=== PATIENT | female | born 1990 | race Caucasian/White ===

== ENCOUNTER 2024-10-04 08:31 | Emergency (ER) | payer BC, SELFPAY ==
[2024-10-04 08:45] VITALS: BP 120/79; PULSE 99; RESP 20; TEMP 36.4; O2SAT 100
[2024-10-04 09:15] LABS: EDCOVIDSCREEN Negative (Negative); EDINFLUASCREEN Negative (Negative); EDINFLUBSCREEN Negative (Negative)
--- NOTE | 2024-10-04 09:20 | ED.GENADULT ---
HPI - General Adult General Chief complaint: Upper Respiratory Infection Stated complaint: Cough/Sore Throat Source: patient Mode of arrival: ambulatory Limitations: no limitations History of Present Illness HPI narrative: Pt presents for evaluation of a cough for the past three days. Cough is productive of green sputum. She has had hot flashes and chills. No SOB, nausea, vomiting, diarrhea, sore throat or otalgia. She denies any recent sick contacts. She does not smoke. She has taken theraflu for her symptoms. Related Data Home Medications ?Medication ?Instructions ?Recorded ?Confirmed ?Last Taken ?Type esomeprazole magnesium 40 mg 40 mg PO DAILY 10/04/24 Unknown History capsule,delayed release Allergies Allergy/AdvReac Type Severity Reaction Status Date / Time Penicillins Allergy resp Verified 10/04/24 09:06 difficulty Review of Systems Review of Systems: CONSTITUTIONAL: Reports hot flashes and chills EYES: Denies visual changes, redness, or discharge. ENT: Denies rhinorrhea, congestion, sore throat, or otalgia. CARDIOVASCULAR: Denies chest pain, palpitations, or edema. RESPIRATORY: Reports cough. Denies SOB GASTROINTESTINAL: Denies abdominal pain, nausea, vomiting, or diarrhea. GENITOURINARY: Denies dysuria or hematuria. SKIN: Denies rash or itching. MUSCULOSKELETAL: Denies back pain, joint pain, or myalgia. NEUROLOGIC: Denies headache, numbness, dizziness, or weakness. PSYCHIATRIC: Denies anxiety or depression. PMFSH Past Medical History Medical History No pertinent past medical history Surgical History Surgical History No pertinent past surgical history Family History Family History Mother Family history non-contributory Social History Social History Smoking status: Never smoker Substance use: never Living arrangements: alone Gender identity (if verbalized by the patient): Female Spiritual care concerns: No Exam Narrative: GENERAL: Well-appearing, well-nourished, and in no acute distress. HEAD: Normocephalic, atraumatic. EYES: PERRLA and EOMI. ENT: Nares clear, no rhinorrhea or epistaxis. Mucous membranes moist. Oropharynx without tonsillar hypertrophy exudate or other lesions. Bilateral TMs pearly farrell nonbulging NECK: Supple. No adenopathy or masses. No carotid bruits or JVD CHEST: Clear to auscultation. No respiratory distress. No wheezes rales or rhonchi HEART: Regular rate and rhythm. No murmur heard. Normal peripheral pulses. ABDOMEN: Soft, nontender, nondistended, normal active bowel sounds. EXTREMITIES: Normal range of motion. No edema. SKIN: Warm, dry, no rash. NEURO: No focal deficits. Alert and oriented x3. PSYCH: Normal mood and affect. Course Course Emergency Course: This is a 34 yr old female who presented for evaluation of cough. Flu and COVID were negative. She does not have any adventitious lung sounds warranting imaging. Exam consistent with acute viral syndrome. Recommend OTC agents for symptom management. Increase hydration. Follow up with primary provider. Go to the ER for worsening symptoms. Pt in agreement with plan of care. Level of Care: Express Care Visit Vital Signs Vital signs: Vital Signs Temperature 36.4 C L 10/04/24 08:45 Pulse Rate 99 10/04/24 08:45 Respiratory Rate 10/04/24 08:45 Blood Pressure 120/79 10/04/24 08:45 Pulse Oximetry 100 10/04/24 08:45 Oxygen Delivery Room Air 10/04/24 08:45 Temperature 36.4 C L 10/04/24 08:45 Pulse Rate 99 10/04/24 08:45 Respiratory Rate 20 10/04/24 08:45 Blood Pressure 120/79 10/04/24 08:45 Pulse Oximetry 100 10/04/24 08:45 Oxygen Delivery Room Air 10/04/24 08:45 Medical Decision Making Vital Signs Vital Signs: Vital Signs Temperature 36.4 C L 10/04/24 08:45 Pulse Rate 99 10/04/24 08:45 Respiratory Rate 20 10/04/24 08:45 Blood Pressure 120/79 10/04/24 08:45 Pulse Oximetry 100 10/04/24 08:45 Oxygen Delivery Room Air 10/04/24 08:45 Temperature 36.4 C L 10/04/24 08:45 Pulse Rate 99 10/04/24 08:45 Respiratory Rate 20 10/04/24 08:45 Blood Pressure 120/79 10/04/24 08:45 Pulse Oximetry 100 10/04/24 08:45 Oxygen Delivery Room Air 10/04/24 08:45 Lab Data Labs: Lab Results 10/04/24 Range/Units 09:13 POC Influenza A Ag Negative (Negative) POC Influenza B Ag Negative (Negative) POC SARS CoV-2 Ag Negative (Negative) Discharge Plan Discharge Clinical Impression: Acute viral syndrome Patient Disposition: Home, Self-Care Condition: Stable Instructions: Antibiotic Form, Upper Respiratory Infection (ED), Viral Syndrome (ED) Additional Instructions: YOU MAY TAKE MUCINEX DM OR DEXTROMETHORPHAN FOR YOUR SYMPTOMS Patient Language: Mongolian Prescriptions: No Action esomeprazole magnesium 40 mg capsule,delayed release(DR/EC) 40 mg PO DAILY Follow-up/Referrals: Harms,Lee Harrington M.D. [Primary Care Provider] - Time of Disposition: 09:18
--- OUTSIDE RECORDS SUMMARY | 2024-10-05 21:52 | XMS_ITS | Referral Summary ---
Author Organization [facility] [place] [address] lt Address [address] [place] [address] Care Team Providers Care Apprentice Painter Brush Name Role Phone Lee Trujillo MD Primary Care Provider [phone] Encounters Date Type Department Care Team Description 10/03/2024 Nurse Triage [facility] [address] [place] [address] Lee Trujillo MD from Last 3 Months Allergies Active Allergy Reactions Criticality Noted Date Comments Penicillins Unknown 01/19/2022 Medications etonogestreL (Nexplanon) 68 mg implant Nexplanon 68 mg subdermal implant Inject 1 implant by subcutaneous route. Active ondansetron ODT (ZOFRAN-ODT) 4 mg disintegrating tabletIndications: Nausea Take 1 tablet (4 mg total) by mouth every 8 (eight) hours as needed for nausea or vomiting 20 tablet 03/24/[address] (NexIUM) 40 mg capsule Take 1 capsule (40 mg total) by mouth daily before breakfast 30 capsule 11 03/30/20 24 025 Active Active Problems Problem Noted Date Diagnosed Date Epigastric pain 03/30/2024 Assessment & Plan (03/30/2024 5:38 PM CDT): Benign abdominal exam. Referral to GI placed. Start esomeprazole 40 mg daily. Encouraged to keep food diary. Red flags reviewed. Will monitor response. Gastroesophageal reflux disease 03/30/2024 Assessment & Plan (03/30/2024 5:37 PM CDT): See plan as above. Pruritus 11/18/2023 Skin lesion 11/18/2023 Assessment & Plan (11/18/2023 3:25 PM AIRPORT RAMP ATTENDANT): Referral placed to dermatology for evaluation flat facial warts and common wart present on left forearm. Common wart 11/18/2023 Assessment & Plan (11/18/2023 3:26 PM AIRPORT RAMP ATTENDANT): See discussion above Other constipation 02/06/2022 Posterior vaginal wall prolapse 02/06/2022 Pelvic floor dysfunction in female 02/06/2022 Morbid obesity with BMI of 45.0-49.9, adult 05/2022 Assessment & Plan (11/18/2023 3:21 PM AIRPORT RAMP ATTENDANT): Encourage healthy diet and regular exercise. Assessment & Plan (01/19/2022 3:34 PM CDT): Congratulated patient on on recent lifestyle changes and weight loss. Recommended using my fitness Pal and scheduling workout to avoid missing weekly exercise. Discussed healthy diet and importance of regular physical activity. Encounter for screening for lipid disorder 01/19 Assessment & Plan (11/18/2023 3:21 PM AIRPORT RAMP ATTENDANT): Will check fasting labs. Assessment & Plan (01/19/2022 3:33 PM CDT): Fasting labs ordered, reviewed diet and exercise recommendations with patients. Encounter for annual physical exam 01/19/2022 Assessment & Plan (11/18/2023 3:20 PM AIRPORT RAMP ATTENDANT): Preventative exam reviewed recommended screenings and vaccinations. -following with obgyn nurse annually -labs ordered today -patient is nonsmoker Assessment & Plan (01/19/2022 3:33 PM CDT): Preventive exam; reviewed recommended preventive screenings and vaccinations. Encourage annual flu vaccine. Wear sunscreen/protective clothing when outdoors. Healthcare maintenance 01/19/2022 Fatigue 01/19/2022 Assessment & Plan (01/19/2022 3:33 PM CDT): Discussed differential diagnoses and multiple factors influencing fatigue including anemia, endocrinopathies, vitamin deficiencies, hormonal imbalance, inadequate sleep, poor diet, and lack of exercise. Encouraged healthy eating and regular physical activity. Reviewed sleep hygiene. Will continue to monitor. Dyspepsia 01/19/2022 Assessment & Plan (11/18/2023 3:21 PM AIRPORT RAMP ATTENDANT): Avoiding aggravating foods. Using omeprazole 40 mg p.r.n. with good response, does not take daily Assessment & Plan (01/19/2022 3:33 PM CDT): Discussed avoiding meals before bedtime and avoiding aggravating foods. GERD symptoms worsening with weight gain. Patient is aware of need for weight loss, has lost 6 lb in the past 2 weeks after joining the gym. Will trial PPI and monitor response. Immunizations Name Administration Dates Next Due Influenza, Unspecified 11/18/2023(Deferr ed: Patient Refused),06/13/2023(Deferred: Patient Refused),06/13/2022(Deferred: Patient Refused),09/13/2021(Deferred: Patient Refused) Social History Tobacco Use Types Packs/Day Years Used Date Smoking Tobacco: Never Smokeless Tobacco: Never Tobacco Cessation:Counseling Given: Not Answered PHQ-2 Answer Date Recorded PHQ-2 Total Score (If total score is 3 or more points, staff should administer the PHQ-9) 0 11/18/2023 Personal Safety Answer Date Recorded Getting School Help Needed Not on file 09/17 Comments No Sex and Gender Information Value Date Recorded Sex Assigned at Not on file Legal Sex Female 2:17 PM CDT Gender Identity Not on file Sexual Orientation Not on file 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 Not on file Not on file Not on file Last Filed Vital Signs Vital Sign Reading Time Taken Comments Blood Pressure 108/76 03/30/2024 4:54 PM CDT Pulse 94 03/30/2024 4:54 PM CDT Temperature 36.1 ??C (97 ??F) 03/30/2024 4:54 PM CDT Respiratory Rate 18 03/30/2024 4:54 PM CDT Oxygen Saturation 99% 03/30/2024 4:54 PM CDT Inhaled Oxygen Concentration - - Weight 121.8 kg (268 lb 9.6 oz) 03/30/2024 4:54 PM CDT Height 162.6 cm (5' 4.02 ) 03/30/2024 4:54 PM CD T Body Mass Index 46.08 03/30/2024 4:54 PM CDT Plan of Treatment Not on file Insurance [employer] OOS BLUE ACCESS OOS Care Teams Apprentice Painter Brush Relationship Specialty Start Date End Date Lee Trujillo MD [address] [place] [address] PCP - General Family Medicine 01/19/22
--- OUTSIDE RECORDS SUMMARY | 2024-10-05 21:52 | XMS_ITS | Data Portability ---
Author Organization [facility] FAIZANRoger Address [address] [place] [address] Care Team Providers Care Medical Officer Name Role Phone ANTELMO LIVE [facility] LUCIE SMITH Primary Care Provider Unavailabl e Assessment No assessment recorded. Plan of Treatment Reminders Order Date Submit Date Provider Last Modified By Organization Details Last Modified Time Details Appointments None recorded. Lab test, urine 2016 017 [email or web address] In-Office Order, Internal Use Only DO Not Attach Compendium DO Not Attach Compendium, Do Not Delete/merge, [id number] 7 09:19:12 vitamin B12, serum 2016 017 [facility], [address] [place] [address], [address], [place], [address], 7 08:25:23 CBC w/ auto diff 2016 017 [facility], [address] [place] [address], [address], [place], [address], 7 08:25:22 CMP, serum or plasma 2016 017 [facility], [address] [place] [address], [address], [place], [address], 7 08:25:23 SARS CoV 2 RNA (COVID-19 ), QL, folder machine-PCR, respirato ry specimen - sore throat, ear pain, diarrhea headaches , exposed to pos COVID person , [place] [address] 2019 [facility] [address] [place], [address], 0 17:42:15 test, urine 2021 [email or web address] In-Office Order, Internal Use Only DO Not Attach Compendium DO Not Attach Compendium, Do Not Delete/merge, [id number] 2 10:11:38 culture, urine 2021 [facility], [address] [place] [address], [address], [place], [address], 2 03:36:36 cytology report, thin prep, smear or scraping, cervical or vaginal 2021 [facility], [address] [place] [address], [address], [place], [address], 2 08:36:22 test, urine 2021 [email or web address] In-Office Order, Internal Use Only DO Not Attach Compendium DO Not Attach Compendium, Do Not Delete/merge, [id number] 2 15:43:45 Referral urogyneco logist referral - Please call pt to set up an appointme nt. Thank you 2021 [facility] , [address] [place], [address], 11:33:57 physical therapist referral - Please all pt to set up an appointme nt. Thank you 2021 [facility], [address], [place], [address], 09:55:57 Procedures None recorded. Surgeries None recorded. Imaging None recorded. Medication Orders Nexplanon 68 mg subdermal implant 2016 017 [id number], [address], [place], [place], [id number], 7 09:19:12 Nexplanon 68 mg subdermal implant 2021 022 анд[facility]ей [facility] #[id number], [address], [place], [place], [id number], 15:45:05 Patient TargetsNo targets recorded. Patient Instructions Encounter Date Encounter Id Patient Instructions Last Modified By Organization Details Last Modified Time 04/12/2017 [id number] Take over the counter Aleve twice a day with food for 2 weeks, then take as needed. Foot exercises at least once a day. [email or web address] Not available 04/12/2017 11:01:39 06/18/2020 [id number] Reviewed the following recommendations: -Stay home and separate from others as much as possible. -Monitor your symptoms and seek medical attention for trouble breathing, persistent chest pain, confusion, or bluish lips or face. -Wear a mask if you must be around other people. -Wash your hands often for 20 seconds with soap and water and clean high-touch surfaces daily -You may discontinue home isolation if your symptoms are improving and it has been 10 days since symptoms started. [email or web address] Not available 06/18/2020 12:29:38 01/20/2022 [id number] A healthy lifestyle: care instructions [email or web address] Not available 01/20/2022 10:48:17 Stress Incontinence: Care Instructions [email or web address] Not available 01/20/2022 10:02:23 kegel exercises: care instructions [email or web address] Not available 01/20/2022 10:02:23 rectocele: care instructions [email or web address] Not available 01/20/2022 10:02:23 Reason for Referral Urogynecologist Referral for Cystocele and rectocele co-occurrent with incomplete uterovaginal prolapse Please call pt to set up an appointment. Thank you Referring Physician: Vicki Carranza, FEED MANAGER, Encounter Date: 01/20/2022 Physical Therapist Referral for Cystocele and rectocele co-occurrent with incomplete uterovaginal prolapse stress incontinence and rectocele Please all pt to set up an appointment. Thank you Referring Physician: Vicki Carranza, FEED MANAGER, Encounter Date: 01/20/2022 Results Created Date Observation Date Name Description Value Unit Range Abnormal Flag Note LastModifiedBy Organization Detail LastModifiedTime 10/28/19 17 10/28/2016 pregn naman test, urine HCG negati ve Not Available In-Office Order Internal Use Only DO Not Attach Compendium DO Not Attach Compendium, Do Not Delete/merge, [id number] 10/28/2016 08:55:41 10/14/19 17 10/14/2016 pregn naman test, urine HCG negati ve Not Available In-Office Order Internal Use Only DO Not Attach Compendium DO Not Attach Compendium, Do Not Delete/merge, [id number] 10/14/2016 16:05:47 10/14/19 17 10/15/2016 HIV 1+2 AB + HIV 1 p24 Ag, quali tativ e immun oassa y, serum HIV screen 4TH generation wrfx NON REACTI VE non reacti ve Not Available [facility] ([facility]) [address], [place], [address], 10/15/2016 07:37:43 10/14/19 17 10/14/2016 hepat itis C Ab, signa l-to- cutof f, serum or plasm a comment: COMMEN T NON REACT SALVADOR HCV ANTIB PARVEEN SCREE N IS CONSI STENT WITH NO HCV INFEC TION, UNLES S RECEN T INFEC TION IS SUSPE CTED OR OTHER EVIDE NCE EXIST S TO INDIC ATE HCV INFEC TION. Not Available [facility] ([facility]) [address] [facility], [place], [address], 10/15/2016 07:37:43 10/14/19 17 10/15/2016 hepat itis C Ab, signa l-to- cutof f, serum or plasm a HCV Ab <0.1 S/co_ ratio 0.0-0. 9 Not Available [facility] ([facility]) [address] [place], [address], 10/15/2016 07:37:43 10/14/19 17 10/15/2016 RPR (rapi d plasm a reagi n), serum RPR NON REACTI VE non reacti ve Not Available [facility] ([facility]) [address] [facility], [place], [address], 10/15/2016 07:37:44 10/14/19 17 10/15/2016 HBsAg (hepa titis B surfa ce Ag), EIA, serum HBsAg screen NEGATI VE negati ve Not Available [facility] ([facility]) [address] [facility], [place], [address], 10/15/2016 07:37:44 10/14/19 17 10/16/2016 pap, IG + CT/NG /TV + refle x HR HPV diagnosis: COMMEN T NEGAT SALVADOR FOR INTRA EPITH ELIAL LESIO N AND CARINA MYLES . Not Available [facility] ([facility]) [address] [facility], [place], [address], 10/20/2016 12:36:19 10/14/19 17 10/16/2016 pap, IG + CT/NG /TV + refle x HR HPV specimen adequacy: COMMEN T SATIS FACTO RY FOR EVALU ATION . ENDOC ERVIC AL AND/O R SQUAM OUS METAP LASTI C CELLS (ENDO CERVI VALENTINA COMPO NENT) ARE PRESE NT. Not Available [facility] ([facility]) [address] [place], [address], 10/20/2016 12:36:19 10/14/19 17 10/16/2016 pap, IG + CT/NG /TV + refle x HR HPV clinician provided ICD10: BELKIS T Z01.4 11 Not Available [facility] ([facility]) [address] [place], [address], 10/20/2016 12:36:19 10/14/19 17 10/16/2016 pap, IG + CT/NG /TV + refle x HR HPV performed by: BELKIS YEAGER WS, CYTOGaby Kaye (ASCP ) Not Available [facility] ([facility]) [address] [place], [address], 10/20/2016 12:36:19 10/14/19 17 10/16/2016 pap, IG + CT/NG /TV + refle x HR HPV . . Not Available [facility] ([facility]) [address] [facility], [place], [address], 10/20/2016 12:36:19 10/14/19 17 10/16/2016 pap, IG + CT/NG /TV + refle x HR HPV note: BELKIS Kaye THE PAP SMEAR IS A SCREE CARMEL TEST DESIGNACIO GRIFFIND TO AID IN THE DETEC TION OF MARIANA LIGNA NT AND MALIG NANT CONDI TIONS OF THE UTERI NE CERVI X. IT IS NOT A DIAGN OSTIC PROCE DURE AND SHOUL D NOT BE USED THE SOLE MEANS OF DETEC TING CERVI VALENTINA CANCE R. BOTH FALSE -POSI TIVE AND FALSE -NEGA TIVE REPOR TS DO OCCUR . Not Available [facility] ([facility]) [address] [facility], [place], [address], 10/20/2016 12:36:19 10/14/1910/16/2016 pap, IG + CT/NG /TV + refle x HR HPV test methodology: BELKIS Kaye THIS LIQUI D BASED THINP REP(R ) PAP TEST WAS SCREE SHEN WITH THE USE OF AN IMAGE GUIDE Concepcion Alexander. Not Available [facility] ([facility]) [address] [facility], [place], [address], 10/20/2016 12:36:19 10/14/19 17 10/16/2016 pap, IG + CT/NG /TV + refle x HR HPV . COMMEN T THE HPV DNA REFLE X CRITE SERGIO WERE NOT MET WITH THIS SPECI MEN RESUL T THERE FORE, NO HPV TESTI NG WAS PERFO RMED. Not Available [facility] ([facility]) [address] [place], [address], 10/20/2016 12:36:19 10/14/19 17 10/20/2016 pap, IG + CT/NG /TV + refle x HR HPV chlamydia, nuc. acid amp NEGATI VE negati ve Not Available [facility] ([facility]) [address] [place], [address], 10/20/2016 12:36:19 10/14/19 17 10/20/2016 pap, IG + CT/NG /TV + refle x HR HPV gonococcus, nuc. acid amp NEGATI VE negati ve Not Available [facility] ([facility]) [address] [place], [address], 10/20/2016 12:36:19 10/14/19 17 10/20/2016 pap, IG + CT/NG /TV + refle x HR HPV trich vag by JOHNSON NEGATI VE negati ve Not Available [facility] ([facility]) [address] [facility], [place], [address], 10/20/2016 12:36:19 04/12/20 17 04/13/2017 CBC w/ auto diff WBC 6.6 x10e3 /uL 3.4-10 .8 Not Available [facility] ([facility]) [address] [place], [address], 04/13/2017 08:25:22 04/12/20 17 04/13/2017 CBC w/ auto diff RBC 4.38 x10e6 /uL 3.77-5 .28 Not Available [facility] ([facility]) [address] [place], [address], 04/13/2017 08:25:22 04/12/20 17 04/13/2017 CBC w/ auto diff hemoglobin 13.0 g/dL 11.1-1 5.9 Not Available [facility] ([facility]) [address] [facility] [place], [address], 04/13/2017 08:25:22 04/12/20 17 04/13/2017 CBC w/ auto diff hematocrit 39.3 % 34.0-4 6.6 Not Available [facility] ([facility]) [address] [facility], [place], [address], 04/13/2017 08:25:22 04/12/20 17 04/13/2017 CBC w/ auto diff MCV 90 fL 79-97 Not Available [facility] ([facility]) [address] [facility], [place], [address], 04/13/2017 08:25:22 04/12/20 17 04/13/2017 CBC w/ auto diff MCH 29.7 pg 26.6-3 3.0 Not Available [facility] ([facility]) [address] [facility], [place], [address], 04/13/2017 08:25:22 04/12/20 17 04/13/2017 CBC w/ auto diff MCHC 33.1 g/dL 31.5-3 5.7 Not Available [facility] ([facility]) [address] [facility], [place], [address], 04/13/2017 08:25:22 04/12/20 17 04/13/2017 CBC w/ auto diff RDW 13.4 % 12.3-1 5.4 Not Available [facility] ([facility]) [address] [facility], [place], [address], 04/13/2017 08:25:22 04/12/20 17 04/13/2017 CBC w/ auto diff platelets 243 x10e3 /uL 150-37 9 Not Available [facility] ([facility]) [address] [facility], [place], [address], 04/13/2017 08:25:22 04/12/20 17 04/13/2017 CBC w/ auto diff neutrophils 72 % Not Available [facility] ([facility]) [address] [place], [address], 04/13/2017 08:25:22 04/12/20 17 04/13/2017 CBC w/ auto diff lymphs 19 % Not Available [facility] ([facility]) [address] [place], [address], 04/13/2017 08:25:22 04/12/20 17 04/13/2017 CBC w/ auto diff monocytes 7 % Not Available [facility] ([facility]) [address] [place], [address], 04/13/2017 08:25:22 04/12/20 17 04/13/2017 CBC w/ auto diff eos 2 % Not Available [facility] ([facility]) [address] [place], [address], 04/13/2017 08:25:22 04/12/20 17 04/13/2017 CBC w/ auto diff basos 0 % Not Available [facility] ([facility]) [address] [place], [address], 04/13/2017 08:25:22 04/12/20 17 04/13/2017 CBC w/ auto diff immature cells SENIOR SOFTWARE ARCHITECT Not Available [facility] ([facility]) [address] [place], [address], 04/13/2017 08:25:22 04/12/20 17 04/13/2017 CBC w/ auto diff neutrophils (absolute) 4.7 x10e3 /uL 1.4-7. 0 Not Available [facility] ([facility]) [address] [place], [address], 04/13/2017 08:25:22 04/12/20 17 04/13/2017 CBC w/ auto diff lymphs (absolute) 1.2 x10e3 /uL 0.7-3. 1 Not Available [facility] ([facility]) [address] [facility], [place], [address], 04/13/2017 08:25:22 04/12/20 17 04/13/2017 CBC w/ auto diff monocytes(ab solute) 0.4 x10e3 /uL 0.1-0. 9 Not Available [facility] ([facility]) [address] [facility], [place], [address], 04/13/2017 08:25:22 04/12/20 17 04/13/2017 CBC w/ auto diff eos (absolute) 0.2 x10e3 /uL 0.0-0. 4 Not Available [facility] ([facility]) [address] [facility], [place], [address], 04/13/2017 08:25:22 04/12/20 17 04/13/2017 CBC w/ auto diff baso (absolute) 0.0 x10e3 /uL 0.0-0. 2 Not Available [facility] ([facility]) [address] [facility], [place], [address], 04/13/2017 08:25:22 04/12/2004/13/2017 CBC w/ auto diff immature granulocytes 0 % Not Available [facility] ([facility]) [address] [facility], [place], [address], 04/13/2017 08:25:22 04/12/2004/13/2017 CBC w/ auto diff immature grans (abs) 0.0 x10e3 /uL 0.0-0. 1 Not Available [facility] ([facility]) [address] [facility], [place], [address], 04/13/2017 08:25:22 04/12/2004/13/2017 CBC w/ auto diff NRBC SENIOR SOFTWARE ARCHITECT Not Available [facility] ([facility]) [address] [facility], [place], [address], 04/13/2017 08:25:22 04/12/202017 CBC w/ auto diff hematology comments: SENIOR SOFTWARE ARCHITECT Not Available [facility] ([facility]) [address] [facility] [place], [address], 04/13/2017 08:25:22 04/12/20 17 04/13/2017 CMP, serum or plasm a glucose, serum 94 mg/dL 65-99 Not Available [facility] ([facility]) [address] [facility] [place], [address], 04/13/2017 08:25:23 04/12/20 17 04/13/2017 CMP, serum or plasm a BUN 13 mg/dL 6-20 Not Available [facility] ([facility]) [address] [facility] [place], [address], 04/13/2017 08:25:23 04/12/20 17 04/13/2017 CMP, serum or plasm a creatinine, serum 0.66 mg/dL 0.57-1 .00 Not Available [facility] ([facility]) [address] [facility] [place], [address], 04/13/2017 08:25:23 04/12/20 17 04/13/2017 CMP, serum or plasm a eGFR if nonafricn AM 121 mL/mi n/1.7 3 >59 Not Available [facility] ([facility]) [address] [facility] [place], [address], 04/13/2017 08:25:23 04/12/20 17 04/13/2017 CMP, serum or plasm a eGFR if africn AM 140 mL/mi n/1.7 3 >59 Not Available [facility] ([facility]) [address] [facility] [place], [address], 04/13/2017 08:25:23 04/12/20 17 04/13/2017 CMP, serum or plasm a BUN/creatini ne ratio 20 9-23 Not Available [facility] ([facility]) [address] [facility] [place], [address], 04/13/2017 08:25:23 04/12/20 17 04/13/2017 CMP, serum or plasm a sodium, serum 140 mmol/ L 134-14 4 Not Available [facility] ([facility]) [address] [facility] [place], [address], 04/13/2017 08:25:23 04/12/20 17 04/13/2017 CMP, serum or plasm a potassium, serum 4.1 mmol/ L 3.5-5. 2 Not Available [facility] ([facility]) [address] [facility] [place], [address], 04/13/2017 08:25:23 04/12/2004/13/2017 CMP, serum or plasm a chloride, serum 104 mmol/ L 96-106 Not Available [facility] ([facility]) [address] [place], [address], 04/13/2017 08:25:23 04/12/20 17 04/13/2017 CMP, serum or plasm a carbon dioxide, total 23 mmol/ L 18-29 Not Available [facility] ([facility]) [address] [facility] [place], [address], 04/13/2017 08:25:23 04/12/2004/13/2017 CMP, serum or plasm a calcium, serum 8.8 mg/dL 8.7-10 .2 Not Available [facility] ([facility]) [address] [place], [address], 04/13/2017 08:25:23 04/12/2004/13/2017 CMP, serum or plasm a protein, total, serum 6.6 g/dL 6.0-8. 5 Not Available [facility] ([facility]) [address] [place] [address], [address], 04/13/2017 08:25:23 04/12/2004/13/2017 CMP, serum or plasm a albumin, serum 3.9 g/dL 3.5-5. 5 Not Available [facility] ([facility]) [address] [place], [address], 04/13/2017 08:25:23 04/12/2004/13/2017 CMP, serum or plasm a globulin, total 2.7 g/dL 1.5-4. 5 Not Available [facility] ([facility]) [address] [place], [address], 04/13/2017 08:25:23 04/12/2004/13/2017 CMP, serum or plasm a A/G ratio 1.4 1.2-2. 2 Not Available [facility] ([facility]) [address] [place], [address], 04/13/2017 08:25:23 04/12/2004/13/2017 CMP, serum or plasm a bilirubin, total 0.4 mg/dL 0.0-1. 2 Not Available [facility] ([facility]) [address] [facility] [place], [address], 04/13/2017 08:25:23 04/12/2004/13/2017 CMP, serum or plasm a alkaline phosphatase, S 72 IU/L 39-117 Not Available [facility] ([facility]) [address] [facility] [place], [address], 04/13/2017 08:25:23 04/12/2004/13/2017 CMP, serum or plasm a AST (SGOT) 12 IU/L 0-40 Not Available [facility] ([facility]) [address] [facility], [address], 04/13/2017 08:25:23 04/12/2004/13/2017 CMP, serum or plasm a ALT (SGPT) 11 IU/L 0-32 Not Available [facility] ([facility]) [address] [place], [address], 04/13/2017 08:25:23 04/12/20 17 04/13/2017 vitam in B12, serum vitamin B12 338 pg/mL 211-94 6 Not Available [facility] ([facility]) [address] [facility], [place], [address], 04/13/2017 08:25:23 06/18/20 20 06/18/2020 SARS CoV 2 RNA (COVI D-19) , QL, folder machine-P CR, respi rator y speci men sars - cov - 2 PCR NEGATI VE mL Not Available [facility] ([facility]) [address] [place], [address], 06/19/2020 17:42:15 06/18/20 20 06/18/2020 SARS CoV 2 RNA (COVI D-19) , QL, folder machine-P CR, respi rator y speci men covidcom1 COMME NTS: This assay is desig shen to detec t the RdRp and N genes of SARS- CoV-2 using nucle ic acid ampli ficat ion. A negat salvador resul t does not precl ude the possi bilit y of 2019- nCoV infec tion since the adequ acy of sampl e colle ction and/o r low viral burde n may resul t in the prese nce of viral nucle ic acids level s below the brando tical sensi tivit y of this test metho d. Not Available [facility] (Lab) [address] [facility], [place], [address], 06/19/2020 17:42:15 06/18/20 20 06/18/2020 SARS CoV 2 RNA (COVI D-19) , QL, folder machine-P CR, respi rator y speci men covidcom2 Posit salvador resul ts are indic ative of the prese nce of SARS- CoV-2 RNA and do not rule out bacte rial infec tion or co-in fecti on with other virus es. Not Available [facility] ([facility]) [address] [facility], [place], [address], 06/19/2020 17:42:15 06/18/2006/18/2020 SARS CoV 2 RNA (COVI D-19) , QL, folder machine-P CR, respi rator y speci men covidcom3 Test resul ts shoul d be used along with other clini valentina obser vatio ns, patie nt histo ry, epide miolo gical infor matio n and labor atory data in orquidea g the diagn osis. Not Available [facility] ([facility]) [address] [place], [address], 06/19/2020 17:42:15 06/18/20 20 06/18/2020 SARS CoV 2 RNA (COVI D-19) , QL, folder machine-P CR, respi rator y speci men covidcom4 This test has recei low FDA Emerg ency Use Autho rizat ion and has been verif ied by [facility] . This test is only autho rized for the durat ion of the decla ratio n and the circu mstan klaus that exist to justi fy the autho rizat ion of the emerg ency use of in vitro diagn ostic tests for the detec tion of SARS- CoV-2 virus and/o r diagn osis of COVID -19 infec tion under secti on 564 (b) (1) of the Act. 11 U.S.C . 360bb b-3 (b) (1), unles s the autho rizat ion is termi nated or revok ed soone r. Not Available [facility] (Lab) [address] [place], [address], 06/19/2020 17:42:15 06/18/20 20 06/18/2020 SARS CoV 2 RNA (COVI D-19) , QL, folder machine-P CR, respi rator y speci men covidcom5 [facility] is certi fied under CLIA- 88 as quali fied to perfo rm high compl exity testi ng. This testi ng was perfo rmed in the [facility] [place] [place] [address] (CLIA Licen se #[id number] 30328 5, CAP #[id number], AU-ID #[id number]). Not Available [facility] (Lab) [address], [place], [address], 06/19/2020 17:42:15 06/18/20 20 06/18/2020 SARS CoV 2 RNA (COVI D-19) , QL, folder machine-P CR, respi rator y speci men covidcom6 Facts heet for healt hcare provi ders: https ://ww [employer] .gov/ media /1362 56/do wnloa d Facts heet for patie nts: https ://[employer] .gov/ media /1362 57/do wnloa d Not Available [facility] (Lab) [address], [place], [address], 06/19/2020 17:42:15 01/21/20 22 01/21/2022 URINE CULTU RE, ROUTI NE urine culture, routine Final report Not Available [facility] ([facility]) [address] [place], [address], 01/22/2022 03:36:36 01/21/20 22 01/21/2022 URINE CULTU RE, ANTOLINI NE result 1 No growth Not Available [facility] ([facility]) [address] [place], [address], 01/22/2022 03:36:36 01/21/20 22 01/22/2022 IGP, APTIM A HPV, RFX 16/18 ,45 HPV aptima Negati ve negati ve This nucle ic acid ampli ficat ion test detec ts fourt een high- risk HPV types (16,1 8,31, 33,35 ,39,4 5,51, 52,56 ,58,5 9,66, 68) witho ut diffe renti ation . Not Available [facility] ([facility]) [address] [place], [address], 01/26/2022 08:36:21 01/21/20 22 01/26/2022 IGP, APTIM A HPV, RFX 16/18 ,45 diagnosis: Belkis t RAFA FRANCO FOR INTRA EPITH ELIAL DESIRE Charles OR CARINA MYLES . Not Available [facility] ([facility]) [address] [place], [address], 01/26/2022 08:36:21 01/21/20 22 01/26/2022 IGP, APTIM A HPV, RFX 16/18 ,45 specimen adequacy: Belkis t Satis facto ry for evalu ation . Endoc ervic al and/o r squam ous metap lasti c cells (endo cervi valentina compo nent) are prese nt. Not Available [facility] ([facility]) [address] [place], [address], 01/26/2022 08:36:21 01/21/20 22 01/26/2022 IGP, APTIM A HPV, RFX 16/18 ,45 clinician provided ICD10: Belkis kaye Z01.4 19 Not Available [facility] ([facility]) [address] [place], [address], 01/26/2022 08:36:21 01/21/20 22 01/26/2022 IGP, APTIM A HPV, RFX 16/18 ,45 performed by: Belkis Triplett th, Cytot jennifer kaye (ASCP ) Not Available [facility] ([facility]) [address] [place], [address], 01/26/2022 08:36:21 01/21/20 22 01/26/2022 IGP, APTIM A HPV, RFX 16/18 ,45 . . Not Available [facility] ([facility]) [address] [place], [address], 01/26/2022 08:36:21 01/21/20 22 01/26/2022 IGP, APTIM A HPV, RFX 16/18 ,45 note: Commen t The Pap smear is a scree carmel test desig shen to aid in the detec tion of mariana ligna nt and malig nant condi tions of the uteri ne cervi x. It is not a diagn ostic proce dure and shoul d not be used as the sole means of detec ting cervi valentina cance r. Both false -posi tive and false -nega tive repor ts do occur . Not Available [facility] ([facility]) [address] [facility], [place], [address], 01/26/2022 08:36:21 01/21/20 22 01/26/2022 IGP, APTIM A HPV, RFX 16/18 ,45 test methodology: Belkis t This liqui d based ThinP rep(R ) pap test was scree shen with the use of an image guide d systbonita m. Not Available [facility] ([facility]) [address] [facility], [place], [address], 01/26/2022 08:36:21 01/21/20 22 01/20/2022 pregn naman test, urine HCG negati ve Not Available In-Office Order Internal Use Only DO Not Attach Compendium DO Not Attach Compendium, Do Not Delete/merge, [id number] 01/20/2022 10:04:28 02/03/20 22 02/02/2022 pregn naman test, urine HCG negati ve Not Available In-Office Order Internal Use Only DO Not Attach Compendium DO Not Attach Compendium, Do Not Delete/merge, [id number] 02/02/2022 15:43:39 Result Notes None recorded. Problems Name Problem SNOMED Code Status Onset Date Resolution Date Notes Provider Name and Address Organization Details Recorded Time No current problems or disability 933100974 Active Micki Silva debi [facility] - [facility] 7 15:20:16 Insertion of subcutaneous contraceptive Active 2016 Micki Silva debi [place] - [place] 7 11:56:40 Problem Notes None recorded. Procedures Surgical History Date Name Laterality Status Provider Name and Address Organization Details Recorded Time 05/23/202 2 Control Implant Replacement completed ELIZABETH Bradford Attn: Accounting,[address], [place], [address], [facility] [place] 02/02/2022 15:43:18 2 Date of Last Pap Smear completed Samantha Sappjuan [place] - [facility] 01/20/2022 09:35:23 7 Control Implant Replacement completed Antelmo Live [place] - [place] 10/28/2016 11:32:50 Imaging Results None recorded. Procedure Notes None recorded. Medical Equipment None Reported. Allergies Allergen ID Allergen Name Allergen Category Reaction Reaction Severity Criticality Documentation Date Start Date Code Code System Note Provider Name and Address Organization Details Recorded Time [id number] 2824e Product containin g penicilli n and antibioti c (product) medicatio n Not available Not available Not available 10/14/2016 42975 05 SNOMED pt state s doesn t remem dg exact ly what kind of react ion she had but says she had troub le breat jama after takin g it Not Available Not Available Not Available Medications Name Sig Start Date Stop Date Status Note LastModified by Organization Details LastModified Time clindamycin HCl 300 mg capsule TAKE ONE CAPSULE BY MOUTH EVERY 6 HOURS 01/20 completed Not Available Not Available Not Available azithromyci n 250 mg tablet 01/20 completed Not Available Not Available Not Available ibuprofen 800 mg tablet TAKE 1 TABLET BY MOUTH EVERY 6 HOURS NEEDED 01/20 completed Not Available Not Available Not Available omeprazole 40 mg capsule,del ayed release active Not Available Not Available Not Available tramadol 50 mg tablet TAKE 1 TO 2 TABLETS BY MOUTH EVERY 6 HOURS NEEDED FOR PAIN 01/20 completed Not Available Not Available Not Available methylpredn isolone 4 mg tablets in a dose pack FOLLOW PACKAGE DIRECTION S 01/20 completed Not Available Not Available Not Available One Daily takes one gummy vitamin daily 01/20 completed Not Available Not Available Not Available Nexplanon 68 mg subdermal implant Inject 1 implant by subcutane ous route. 2021 active Not Available Not Available Not Avai lable Vitals Date Recorded Body weight Provider Name an d Address Organization Details Last Updated DateTime 01/20/2022 427586.71 g Samantha Costa Crystal [facility] 01/20 09:34:42 Date Recorded Body mass index (BMI) Body height Provider Name and Address Organization Details Last Updated DateTime 01/20/2022 46.2 kg/m2 162.56 cm Samantha Costa Crystal [facility] 01/20/2022 09:34:49 Date Recorded Body height Provider Name an d Address Organization Details Last Updated DateTime 02/02/2022 162.56 cm Carmina Soares MA [facility] 022 14:35:53 Date Recorded Body mass index (BMI) Body weight Provider Name and Address Organization Details Last Updated DateTime 02/02/2022 45.7 kg/m2 385730.57 g Carmina Soares MA [facility] 02/02/2022 14:36:01 Date Recorded Body height Provider Name an d Address Organization Details Last Updated DateTime 10/28/2016 162.56 [facility] 08:39:37 Date Recorded Body weight Body mass index (BMI) Provider Name and Address Organization Details Last Updated DateTime 10/28/2016 264166.47 g 40.7 kg/m2 Micki Silva [facility] 10/28/2016 08:40:53 Date Recorded Body height Provider Name an d Address Organization Details Last Updated DateTime 04/12/2017 162.56 cm Nallely Tineo MA [facility] 04/12/2017 09:06:46 Date Recorded Body mass index (BMI) Body weight Provider Name and Address Organization Details Last Updated DateTime 04/12/2017 40.9 kg/m2 864392.34 g Nallely Tineo [facility] 04/12/2017 09:07:34 Date Recorded Heart rate Provider Name an d Address Organization Details Last Updated DateTime 04/12/2017 91 /min Nallely Tineo [facility] 03/15 09:07:47 Date Recorded Respiratory rate Provider Name a nd Address Organization Details Last Updated DateTime 04/12/2017 12 /min Nallely Tineo [facility] 04/12/2017 09:07:49 Date Recorded Body temperature Provider Name a nd Address Organization Details Last Updated DateTime 04/12/2017 98 [degF] Nallely Tineo MA [facility] 04/12/2017 09:07:53 Date Recorded Oxygen saturation Oxygen saturation in Arterial blood by Pulse oximetry Provider Name and Address Organization Details Last Updated DateTime 04/12/2017 100 % 100 % Nallely Tineo [place] [facility] 04/12/2017 09:07:57 Date Recorded Systolic blood pressure Diastolic blood pressure Provider Name and Address Organization Details Last Updated DateTime 01/20/2022 118 mm[Hg] 80 mm[Hg] Samantha SappmonREHAN reddy [facility] 01/20/2022 09:31:15 Date Recorded Systolic blood pressure Diastolic blood pressure Provider Name and Address Organization Details Last Updated DateTime 02/02/2022 110 mm[Hg] 80 mm[Hg] Carmina Soares MA [facility] 02/02/2022 14:40:39 Date Recorded Systolic blood pressure Diastolic blood pressure Provider Name and Address Organization Details Last Updated DateTime 10/28/2016 102 mm[Hg] 78 mm[Hg] Micki Silva [facility] 10/28/2016 08:42:16 Date Recorded Systolic blood pressure Diastolic blood pressure Provider Name and Address Organization Details Last Updated DateTime 04/12/2017 110 mm[Hg] 80 mm[Hg] Nallely Tineo MA [facility] 04/12/2017 09:07:44 Social History Question Answer Notes LastModified by Organizat ion Details LastModified Time Tobacco Smoking Status Never Smoker Micki Ricardo carrera [facility] 10/14/2016 15:20:37 What Is Your Level Of Alcohol Consumption? Occasional Information not available 10/14/2016 Is Blood Transfusion Acceptable In An Emergency? Yes Information not available 10/14/2016 What Is Your Level Of Caffeine Consumption? Moderate Information not available 01/20/2022 How Much Tobacco Do You Chew? None Information not available 10/14/2016 Are You Currently Employed? Yes [employer] Information not available 04/12/2017 What Type Of Diet Are You Following? REGULAR Information not available 10/14/2016 Which Illicit Or Recreational Drugs Have You Used? Denies Information not available 10/14/2016 Education 12 Some College Information not available 10/14/2016 Live Alone Or With Others? With Others Information not available 10/14/2016 What Was The Date Of Your Most Recent Tobacco Screening? 01/20/2022 Information not available 01/20/2022 How Many Children Do You Have? 1 Information not available 10/14/2016 Performs Monthly Self-breast Exam? No Sometimes Information not available 10/14/2016 Do You Use Protection During Sex? No Information not available 10/14/2016 What Is Your Relationship Status? Single Information not available 10/14/2016 Seat Belts Used Routinely Yes Information not available 10/14/2016 Are You Sexually Active? Yes Information not available 10/14/2016 General Stress Level Low Information not available 10/14/2016 Do You Use Any Illicit Or Recreational Drugs? No Information not available 01/20/2022 Do You Use Sunscreen Routinely? Yes Information not available 10/14/2016 Has Tobacco Cessation Counseling Been Provided? Yes Information not available 01/20/2022 On What Date Was Tobacco Cessation Counseling Provided? 01/20/2022 Information not available 01/20/2022 Sex: Unknown Functional Status Question Answer Note LastModified by Organizat ion Details LastModified Time What is your exercise level? Occasional Information not available 10/14/2016 Mental Status None recorded. Family History Nothing Reported. Medical History Condition Response Other N High Blood Pressure N Breast Cancer N Kidney or Bladder Problems N Thyroid Problems N GI Problems N Lung Disease N Depression N Blood Clots N Acne N Breast Problem N Eating Disorder N Anemia N Anesthesia Complications N Headaches/Migraines N Anxiety Disorder N Ovarian Cancer N Diabetes N Muscle, Joint, or Bone Problems N Blood Transfusions N Seizures/Epilepsy N Polyps N Infertility N Acid Reflux (GERD) N Cancer N Abuse/Domestic Violence N Asthma N Endometriosis N High Cholesterol N Hepatitis N Liver Disease N Heart Disease N Pre-Eclampsia N Osteoporosis N Gynecological History Statement/Question Response Abnormal Pap N Flow Moderate Date of LMP 12/31/2021 On BCP's at Conception? N STIs/STDs N HPV Vaccine N Duration of Flow (days) 4 Age at Menarche 13 Current Control Method Implant Age at First Child 20 Frequency of Cycle (Q days) 27 Sexually Active? Y Menses Monthly Y Date of Last Pap Smear 01/20/2022 Sexual Problems? N LMP Approximate Desired Control Method Implant Obstetrics History GPAL:G 2 P 1 0 1 1 Type Value Multiple Births 0 Full Term 1 Induced 0 Spontaneous 1 Premature 0 Living 1 Ectopics 0 Total 2 Past Encounters Encounter ID Performer Location Encounter Start Date Encounter Closed Date Diagnosis/Indication Diagnosis SNOMED-CT Code Diagnosis ICD10 Code Diagnosis Note [id number] Antelmo Hope (FEED MANAGER) [address] [place] [address] 10/14/2016 15:01:55 10/15/2016 10:39:56 Gynecologic examination 19086022 Z01.411 Morbidly obese. Last pap done 2013 at site 21. No records available. Pap done. Venereal d isease screening 482730107 Z11.3 RTO two weeks for results. Body mass index 40+ - severely obese 297675601 Z68.41 Pt. believes she is on a diet but her food choices (garner, egg and cheese breakfast sandwich and BLT for lunch along with 3 sodas daily) are not healthy. Referral to a nutritioni [facility]. [facility] ion care management 463688283 Z30.9 Pt. has Nexplanon and wants another one. UPT was negative today. RTO 2 weeks for repeat UPT and Nexplanon insertion. [id number] Antelmo Hope (FEED MANAGER) [address] [place] [address] 10/21/2016 15:37:19 10/22/2016 13:42:30 Venereal disease screening 783193362 Z11.3 Vaginal culture was negative for gonorrhea, chlamydia, and trichomona s, dwp. STD panel was also completely negative. Individual test results dwp. [id number] Micki Hope (FEED MANAGER) [address] [place] [address] 10/28/2016 08:36:53 10/28/2016 11:38:41 Insertion of subcutaneous contraceptive 014149637 Z30.9 Subcutaneo us contraceptive implant palpable 866821886 Z30.49 Benefits, risks, and alternativ es to Nexplanon replacemen t d/w pt. Pt. expressed understand ing. All pt. questions answered. Consent signed and in chart. Current Nexplanon is . UPT was negative 2 weeks ago and today. Nexplanon replaced per protocol and without difficulty . Please see procedure note for details. Pt. tolerated the procedure well. RTO 2 weeks for follow-up. [id number] ELIZABETH Torres (Adult Med) [address] [place] [address] 04/12/2017 08:49:25 04/12/2017 11:15:15 Body mass index 40+ - severely obese 327561436 Z68.41 cont to reduce carbs, work on exercise for weight loss Plantar fasciitis 20280414 003 M72.2 given AAOS handout for foot/ankle conditioni ng exercises, take Aleve BID with food for 2 weeks. Disussed wearing good supportive shoes, avoid flats, flip flops and try heel cups or cont Dr. Tirado if helping. Numbness of toe 08292176 8 R20.0 likely related to plantar fasciitis, start exercises Verruca vulgaris 9671728 3 B07.9 not bothering pt at this time, can refer to derm if pt wants to have it removed at later time. [id number] JESSIE Lundy [address] [place] [address] 06/18/2020 10:15:37 06/20/2020 08:51:44 Viral screening 653422230 Z11.59 D/w pt the current pandemic of COVID-19 and call for social isolation in order to blunt the curve and minimize risk and spread. Encouraged patient and family to take restrictio ns seriously. They have verbalized understand ing of such. Viral syndrome 782918852 B34.9 [id number] ELIZABETH Bradford (FEED MANAGER) [address] [place] [address] 01/20/2022 09:17:15 01/21/2022 07:29:46 Routine gynecologic examination done 9742640279 9101 Z01.419 -Educated on the importance of SBE and awareness. -Discussed the importance of cervical cancer screenings -Educated osteoporos is prevention including calcium rich foods, weight bearing exercise.- Discussed the importance of exercise.- Nutrition discussed and the importance of a diet rich in fruits, vegetable, whole grains, and lean proteins.- Counseled regarding prevention of STD's and screening options, condom use and prevention .-Advised avoidance of tobacco, alcohol, and drugs.-Dis cussed sun safety and the importance of sunscreen. Cystocele and rectocele co-occurrent with incomplete uterovaginal prolapse 085927906 N81.2 Discussed management options. Pt opts for referral to PFPT and UROGYN. Pt educated on importance of lifestyle modificati on and kegels.Pt notified to follow up in 6-8 weeks and call office if issues occur. Female str ess incontinence 08330676 N39.3 Discussed management options. Pt opts for referral to PFPT and UROGYN. Pt educated on importance of lifestyle modificati on and kegels.Pt notified to follow up in 6-8 weeks and call office if issues occur. Contracept ion care management 433596829 Z30.9 Risks/bene fits/alter natives of Nexplanon was reviewed with the patient. Patient opts for scheduling Nexplanon replacemen t. Side-effec ts of Nexplanon including irregular menstrual bleeding, amenorrhea , breast tenderness , mood changes, and weight gain was discussed with the patient. Safe sex counseling was done. Pt notified to we check with her insurance and let her know. Pt notified she needs to use back up method for contracept ion since nexplanon is over due for replacemen t and she needs to have nexplanon placed during menses. Body mass index 40+ - severely obese 217125633 Z68.42 Pt educated on risks and importance of lifestyle modificati ons. Pt reports will continue to follow up with PCP. [id number] ELIZABETH Bradford 14 OB [address] [facility] [address] [place] [address] 02/02/2022 14:24:16 02/03/2022 08:17:34 Removal of subcutaneous contraceptive 293641868 Z30.46 Insertion of subcutaneous contraceptive 890035405 Z30.9 Risks/bene fits/alter natives of Nexplanon was reviewed with the patient. Patient opts for Nexplanon. Side-effec ts of Nexplanon including irregular menstrual bleeding, amenorrhea , breast tenderness , mood changes, and weight gain was discussed with the patient. Safe sex counseling was done. pt educated on site care and notified to call office if issues occur. Health Concerns Section Related Observation LastModified by Organization Detai ls LastModified Time None Recorded Concern Status LastModified by Organization Details LastModified Time None Recorded Advance Directives Directive None Recorded Payers Encounter Date Sequence Insurance Name Policy Number Policy De Guzman Covered Member ID De Guzman Member ID Guarantor Name 10/28/2016 1 [facility] [id number] Smitastity Benjamin Pearson [id number] Chastity Lorenz 04/12/2017 1 [facility] [id number] Smitastity M Pearson [id number] Chastity Lorenz 06/18/2020 1 *SELF PAY* Ch astity Lorenz 01/20/2022 1 [place] [id number] Chastity Lorenz [id number] Chastity Lorenz 02/02/2022 1 [place] [id number] Chastity Lorenz [id number] Chastity Lorenz Notes Date Note Type Note Provider Name and Address Organization Details Recorded Time 10/28/2016 text/html Pt. presents for Nexplanon replacement. Her current Nexplanon is . She had a negative UPT 2 weeks ago. Micki Silva [facility], [place] - [place] 10/28/2016 11:59:40 04/12/2017 text/html For past year le ft ankle edema especially at end of day, no swelling to foot. worse at end of day, works as mgr of [employer] Assoc pain, walking pressure, waking up is worst, takes 15min to get walking upon waking. Mild right ankle swelling, nothing like the left. Numbness to big toe & pinky toe, assoc with swelling and also w/ sitting w/ long periods then trying to stand. constant once it starts. Heel also has pins/needles sensation. Wears Dr. Tirado inserts w/c helps. fatigue, especially at end of day. also has 3 kids. sleeps through the night, feels rested. left collarbone/neck area w/ mild swelling x 1 month, no lump, no pain, no trouble swallowing Weight: working on weight loss, lost 30lbs after she saw vice president and portfolio manager, reduced carbs from diet Lucie Smith PA-C Attn: Accounting,[address] [place], [address], [facility] 04/12/2017 11:02:24 06/18/2020 text/html COVID ScreeningReported bypatient.Onset/Durati on of fever:no fever Associated Symptoms:no cough; no shortness of breathCOVID-19 Symptoms January 2020Reported bypatient.COVID-19 Signs and Symptomscough resolved; fever resolved; shortness of breath resolved; chills resolved; repeated shaking with chills resolved; muscle pain resolved; headache resolved; headache same; sore throat resolved; sore throat same; loss of taste or smell resolved; vomiting or diarrhea resolved; vomiting or diarrhea same; fatigue resolved; anorexia resolved Contacts and Exposureclose contact with a confirmed or suspected case of COVID-19; close proximity with person with COVID-19 Associated Symptoms:no sputum production; no wheezing; no runny nose; no vomiting; no diarrhea; no body aches; no nausea; no change in mental status; no hypotension; no tachycardia 29 yo female ,spoke via phone with C/O, sore throat, ear pain, diarrhea headaches, exposed to pos COVID person FRANCES Braun NP Attn: Accounting,[address] [place], [address], [facility] 06/18/2020 12:30:12 01/20/2022 text/html Annual GYNReport ed bypatient.Menstrual cycle:Normal menses Urinary symptoms:No hematuria;Stress incontinence Vulva:No genital lesion Vagina:Normal vaginal discharge Breast:No breast pain; No breast lump; No nipple discharge Current Contraception:[place] us relationship; Wants to discuss contraceptive options Sexual complaints:No sexual complaints; No pain during intercourse; Normal libido Menopausal Symptoms:No menopausal symptoms; Normal vaginal lubrication Psychological symptoms:No depression; No anxiety; No PMDD Preventive measures:Encourage self breast examination; Encourage regular exercise; Encourage no tobacco use; Encourage regular mammograms starting age 40; Followed with Q3 year pap smear and high risk HPV typing Pt is here annual. Pt reports has some urinary stress incontinence. Pt denies pelvic pain. Pt reports some times when she has a bowel movement she has pressure in her vagina. Pt has nexplanon in her left arm from 2017. Pt wanting to discuss getting it replacement. Pt denies any other complaints. ELIZABETH Bradford Attn: Accounting,[address] [facility], [place], [address], [facility] 01/20/2022 10:50:38 02/02/2022 text/html Pt is here for nexplanon replacement. pt denies any complaints. ELIZABETH Bradford Attn: Accounting,[address] [facility], [place], [address], [facility] 02/02/2022 15:44:44 OBGyn Episode Ob Episode Information Episode Created Date Number of Fetuses Patient Bloodtype Patient rh Status Prepregnancy Weight lbs Domestic Partner Domestic Partner Phone Father Name Weekend Receptionist Status 10/14/19 17 1 CLOSED Fetus Data First Name Last Name Admitted to NICU Weight (g) Sex Living Outcome Pediatric Complications Fetus ID Race Codes Race Delivery Type 2976.47 0704 F Full Term [id number] Vaginal Winston Calculation Initial Winston Date Initial Exam Date Initial Exam Provider Initial Ultrasound Date Last Menstrual Period Date Ultra Sound Weeks Gestation 0 Eighteen To Twenty Week Winston Update Ultra Sound Date Fundal Height At Umbil Quickening Date Ultra Sound Latest Weeks Gestation Final Winston Confirmed By Final Winston Confirmed Date Final Winston Date Ultra Sound Latest Days Gestation 0 0 Menstrual History Last Menstrual Date Menses Monthly On Bcp Conception Prior Menses Frequency Hcg Plus Date Menarche Onset Age Delivery Information Delivery Date Delivery Type Labor Anesthesia Weeks Gestation Incision Type Labor Labor Length Hrs Delivered By Post Complications Tubal Sterilization Discharge Date Comments 0 Discharge Information Feeding Method Contraceptive Method Maternal HG B and HCT Levels Ob Episode Information Episode Created Date Number of Fetuses Patient Bloodtype Patient rh Status Prepregnancy Weight lbs Domestic Partner Domestic Partner Phone Father Name Weekend Receptionist Status 10/14/19 17 1 CLOSED Fetus Data First Name Last Name Admitted to NICU Weight (g) Sex Living Outcome Pediatric Complications Fetus ID Race Codes Race Delivery Type , Spontane ous [id number] Winston Calculation Initial Winston Date Initial Exam Date Initial Exam Provider Initial Ultrasound Date Last Menstrual Period Date Ultra Sound Weeks Gestation 0 Eighteen To Twenty Week Winston Update Ultra Sound Date Fundal Height At Umbil Quickening Date Ultra Sound Latest Weeks Gestation Final Winston Confirmed By Final Winston Confirmed Date Final Winston Date Ultra Sound Latest Days Gestation 0 0 Menstrual History Last Menstrual Date Menses Monthly On Bcp Conception Prior Menses Frequency Hcg Plus Date Menarche Onset Age Delivery Information Delivery Date Delivery Type Labor Anesthesia Weeks Gestation Incision Type Labor Labor Length Hrs Delivered By Post Complications Tubal Sterilization Discharge Date Comments 9 Discharge Information Feeding Method Contraceptive Method Maternal HG B and HCT Levels
--- OUTSIDE RECORDS SUMMARY | 2024-10-05 21:52 | XMS_ITS | Encounter Summary ---
Author Organization [facility] Address [address] [place] [address] Care Team Providers Care Multimedia Producer Name Role Phone Lee Trujillo MD Primary Care Provider [phone] Reason for Visit * Reason Onset Date Comments Cough 10/03/2024 Chest Pain 10/03/2024 Encounter Details Date Type Department Care Team (Late st Contact Info) Description 10/03/2024 Nurse Triage [facility] [address] [address] Lee Trujillo MD [address] [place] [address] Social History Tobacco Use Types Packs/Day Years Used Date Smoking Tobacco: Never Smokeless Tobacco: Never PHQ-2 Answer Date Recorded PHQ-2 Total Score [...] 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 Trujillo please see table inspector note below as a FYI. Thank you TE RECRUITER * Telephone Encounter - Coral Chowdhury RN - 10/03/2024 8:51 AM REMOTE RECRUITER Dulce Lorenz Complaint: Reports chest pain and soreness, productive cough with thick green mucus with streak of blood once last night, chills, sweats, and nausea. Duration: 10/01/24 Details: Center of chest hurt for a few hours, feel like needed to pop. Stuffy nose, without discharge.Denies difficulty breathing, and wheezing. Interventions tried: Theraflu this am. Nurse Triage Protocol Disposition: Go to ED NOW. Advised patient to have tow car driver, nothing to eat or drink, and take medication list. Dulce Lorenz verbalizes understanding. FYI Advised patient to call back after ED visit if f/u care is needed Lee Trujillo MD.. Dulce Lorenz verbalizes understanding. Reason for Disposition Chest pain present when not coughing Protocols used: Uompo-[id number]-IP TE RECRUITER * Telephone Encounter - Coral Chowdhury RN - 10/03/2024 8:37 AM REMOTE RECRUITER Regarding: Pain and Soreness in the Chest Area, Coughing, Chills, Sweat, and Nausea ----- Message from [employer] sent at 10/03/2024 8:37 AM REMOTE RECRUITER ----- Symptom Based Call Chief Complaint(s): Pain and Soreness in the Chest Area, Coughing, Chills, Sweat, and Nausea Duration: Since Wednesday What type of symptom(s) is the patient experiencing? Red Flag. Is the patient concerned they are experiencing a medical emergency requiring an ambulance? No Additional Comments: Was calling to see if an appointment was available. Patient took Theraflu thismorning. Does message need to be routed? Yes-Action Needed TE RECRUITER documented in this encounter Plan of Treatment Not on file documented as of this encounter Visit Diagnoses Not on filedocumented in this encounter Care Teams Multimedia Producer Relationship Specialty Start Date End Date Lee Trujillo MD [address] [place] [address] PCP - General Family Medicine 01/19/22 documented as of this encounter
--- OUTSIDE RECORDS SUMMARY | 2024-10-05 21:52 | XMS_ITS | Clinical Summary ---
Author Organization [facility] [place] [facility] [place] Address [address] [place] [address] Care Team Providers Care Upfitter Name Role Phone Lee Trujillo MD Primary Care Provider [phone] Allergies Active Allergy Reactions Criticality Noted Date [...] 11/18/2023 Assessment & Plan (11/18/2023 3:25 PM MEDICAL OR SURGICAL INSTRUMENT MAKER): Referral placed to dermatology for evaluation flat facial warts and common wart present on left forearm. Common wart 11/18/2023 Assessment & Plan (11/18/2023 3:26 PM MEDICAL OR SURGICAL INSTRUMENT MAKER): See discussion above Other constipation 02/06/2022 Posterior vaginal wall prolapse 02/06/2022 Pelvic floor dysfunction in female 02/06/2022 Morbid obesity with BMI of 45.0-49.9, adult 05/2022 Assessment & Plan (11/18/2023 3:21 PM MEDICAL OR SURGICAL INSTRUMENT MAKER): Encourage healthy diet and regular exercise. Assessment & Plan (01/19/2022 3:34 PM CDT): Congratulated patient on on recent lifestyle changes and weight loss. Recommended using my fitness Pal and scheduling workout to avoid missing weekly exercise. Discussed healthy diet and importance of regular physical activity. Encounter for screening for lipid disorder 01/19 Assessment & Plan (11/18/2023 3:21 PM MEDICAL OR SURGICAL INSTRUMENT MAKER): Will check fasting labs. Assessment & Plan (01/19/2022 3:33 PM CDT): Fasting labs ordered, reviewed diet and exercise recommendations with patients. Encounter for annual physical exam 01/19/2022 Assessment & Plan (11/18/2023 3:20 PM MEDICAL OR SURGICAL INSTRUMENT MAKER): Preventative exam reviewed recommended screenings and vaccinations. -following with sheriff's sergeant annually -labs ordered today -patient is nonsmoker [...] 01/19/2022 Assessment & Plan (11/18/2023 3:21 PM MEDICAL OR SURGICAL INSTRUMENT MAKER): Avoiding aggravating foods. Using omeprazole 40 mg [...] gym. Will trial PPI and monitor response. Encounters Date Type Department Care Team Description 10/03/2024 Nurse Triage [facility] [address] [place] [address] Lee Trujillo MD from Last 3 Months Immunizations Name Administration Dates Next Due Influenza, Unspecified 11/18/2023(Deferr ed: Patient Refused),06/13/2023(Deferred: Patient Refused),06/13/2022(Deferred: Patient Refused),09/13/2021(Deferred: Patient Refused) Family History Medical History Relation Name Comments No Known Problems Father No Known Problems Mother Thyroid disease Sister 1 No Known Problems Sister 2 No Known Problems Sister 3 Relation Name Status Comments Father Alive Mother Alive Sister 1 Alive Sister 2 Alive Sister 3 Alive Social History Tobacco Use Types Packs/Day Years [...] 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 Not on file Not on file Not on file Obstetrics History Para Term AB IAB SAB Ectopic Multiple Livin g Live Births 2 1 1 1 1 1 1 Date Outcome GA Total Labor Labor/2nd/3rd Weight Sex Type Anes PTL Roselia A1 A5 Name Clin SAB 2009 Term F Vag-S pont Living Last Filed Vital Signs Vital Sign Reading [...] 03/30/2024 4:54 PM CDT Plan of Treatment Health Maintenance Due Date Last Done Comments Cervical Cancer Screening 1989 Hepatitis C Screening 1989 DTaP/Tdap/Td Vaccine (1 - Tdap) 2000 Varicella Vaccines (1 of 2 - 13+ 2-dose series) 2002 Hepatitis B Screening 2007 Covid-19 Vaccine (2023-2 5 season) 2024 01/01/2022, 02/25/2021, 01/28/2021 Influenza Vaccine (#1) 2024 Depression Screening 11/17/2024 11/18/2023, 01/19/2022 Regular Well Visit/Exam 18-64 11/17/2024, 01/19/2022 HPV Vaccines Aged Out No longer eligi ble based on patient's age to complete this topic Pneumococcal vaccine <65 Aged Out No longer eligible based on patient's age to complete this topic Insurance [employer] OOS [employer]ADITIONAL BLUE ACCESS OOS Care Teams Upfitter Relationship Specialty Start Date End Date Lee Trujillo MD [address] [place] [address] PCP - General Family Medicine 01/19/22
== END 2024-10-04 09:20 | disposition home or self-care (01) ==
PROVIDERS: Emergency Provider Nurse Practitioner; PCP Family Medicine
DX: B34.9 Viral infection, unspecified (principal); Z20.822 Contact with and (suspected) exposure to COVID-19
CPT/HCPCS: 87426; 87804; 99202; G0463